=== PATIENT | male | born 1960 | race Caucasian/White ===

== ENCOUNTER → 2019-11-06 15:19 | Outpatient (CLI) | payer OTHER, SELFPAY ==
[2019-11-06 16:26] LABS: Add Manual Diff / Slide Review NO; Basophils Absolute Auto 0 /uL (0-100); Basophils Percent Auto 0.4 % (0-2); Eosinophils Absolute Auto 0 /uL (0-450); Eosinophils Percent Auto 0.6 % (2-4); Hematocrit 31.2 % (41-53); Hemoglobin 10.5 g/dL (13.5-17.5); Lymphocytes Absolute Auto 1000 /uL (1100-4500); Lymphocytes Percent Auto 19.8 % (25-40); Mean Corpuscular HGB Conc 33.6 % (30-36); Mean Corpuscular Hemoglobin 28.1 PG (26-34); Mean Corpuscular Volume 83.7 fL (80-100); Monocytes Absolute Auto 400 /uL (0-900); Monocytes Percent Auto 8.1 % (3-14); Neutrophils Absolute Auto 3700 /uL (1500-7000); Neutrophils Percent Auto 71.1 % (50-75); Platelet Count 229 X10^3/uL (150-400); Red Blood Cell Count 3.73 X10^6/uL (4.5-5.9); Red Cell Distribution Width 15.5 % (11.6-14.8); White Blood Cell Count 5.1 X10^3/uL (4.5-11.0)
[2019-11-06 16:45] LABS: Alanine Aminotransferase 22 IU/L (<50); Albumin 3.7 g/dL (3.5-5.0); Albumin Globulin Ratio 1.2 (1.0-2.8); Alkaline Phosphatase 62 U/L (38-126); Aspartate Aminotransferase 22 IU/L (17-59); BUN Creatinine Ratio 9.4 (6-22); Bilirubin Total 0.3 mg/dL (0.2-1.3); Blood Urea Nitrogen 14 mg/dL (9-20); Calcium 8.4 mg/dL (8.4-10.2); Carbon Dioxide 23 mmol/L (22-32); Chloride 106 mmol/L (98-107); Estimated Glomerular Filt Rate 48.4 mL/min (>60); Glucose 219 mg/dL (70-100); HEMOLYSIS < 15 (0-50); Potassium 4.6 mmol/L (3.4-5.1); Sodium 136 mmol/L (137-145); Total Protein 6.7 g/dL (6.3-8.2)
== END ==
PROVIDERS: PCP Internal Medicine; Referring Provider Orthopaedic Surgery; Visit Provider Orthopaedic Surgery
DX: Z01.818 Encounter for other preprocedural examination (principal); Z01.812 Encounter for preprocedural laboratory examination
CPT/HCPCS: 36415; 80053; 85025; 93005

== ENCOUNTER → 2019-11-24 14:43 | Outpatient (CLI) | payer OTHER, SELFPAY ==
[2019-11-25 09:45] LABS: COVID19 Sendout Not Detected (Not Detect)
== END ==
PROVIDERS: PCP Internal Medicine; Visit Provider Student in an Organized Health Care Education/Training Program
DX: Z01.812 Encounter for preprocedural laboratory examination (principal)
CPT/HCPCS: 87635

== ENCOUNTER 2019-11-27 06:41 | Day surgery (SDC) | payer OTHER, SELFPAY ==
[2019-10-09 10:09] VITALS: BMI 38.9
[2019-11-27 07:18] VITALS: BP 145/81; PULSE 80; RESP 16; TEMP 36.6; O2SAT 97; BMI 36.1
--- NOTE | 2019-11-27 07:42 | PM.PREOP ---
Pre-operative Note COVID-19 COVID-19 status: Negative Result date/Date tested (Pos, Neg/Pending): 11/25/19 Interval Note History & Physical reviewed/Exam performed by Physician: Yes Changes to H&P: No
--- NOTE | 2019-11-27 07:46 | PM.HP.1 ---
History of Present Illness History of Present Illness Date Patient Seen: 11/27/19 Time Patient Seen: 07:46 Chief complaint: [id number] RIGHT CUBITAL TUNNEL RELEASE Narrative: 59-year-old gentleman with numbness to the 4th and 5th fingers of his right hand. Patient History Medical History Afib (Acute) Anemia (Acute) Betancourt's esophagus (Acute) CKD (chronic kidney disease), stage IV (Acute) CVA (cerebral vascular accident) (Acute 01/27/16) Degeneration macular (Acute) Diabetes mellitus, type II (Acute) Edema (Acute) GERD (gastroesophageal reflux disease) (Acute) HLD (hyperlipidemia) (Acute) HTN (hypertension) (Acute) Hx of calcium pyrophosphate deposition disease (CPPD) (Acute) Numbness and tingling in right hand (Acute) JANESSA on CPAP (Acute) TIA (transient ischemic attack) (Acute) Surgical History History of esophagogastroduodenoscopy (EGD) (Acute 2015) S/P epidural steroid injection (Acute) Family & Social History Social History: household members spouse Prior Living Arrangements Apartment/Condo Tobacco & Substance use: Smoking Status Former smoker alcohol intake former Substance Use Type does not use Meds Home Medications and Allergies Home Medications Medication Instructions Recorded Confirmed Type Eliquis 5 mg PO BID 10/09/19 11/27/19 History febuxostat 40 mg PO DAILY 10/09/19 11/27/19 History ferrous sulfate 325 mg PO BID 10/09/19 11/27/19 History insulin degludec [Tresiba 13 unit SUBCUT BID 10/09/19 11/27/19 History FlexTouch U-100] insulin lispro [Humalog KwikPen 8 - 10 unit SUBCUT TID 10/09/19 11/27/19 History Insulin] liraglutide [Victoza 2-Lambert] 1.2 mg SUBCUT DAILY 10/09/19 11/27/19 History rosuvastatin [Crestor] 20 mg PO QPM 10/09/19 11/27/19 History anakinra [Kineret] 100 mg SUBCUT DAILY 11/27/19 11/27/19 History Allergies Allergy/AdvReac Type Severity Reaction Status Date / Time No Known Drug Allergies Allergy Verified 11/27/19 07:16 Review of Systems Review of Systems ROS: Yes All systems reviewed with the patient and are negative except as otherwise documented Exam Vital Signs (past 8 hours): - 11/27/19 07:18 Temperature 98 F Pulse Rate 80 Respiratory Rate 16 Blood Pressure 145/81 H Pulse Oximetry 97 Oxygen Delivery Method Room Air Narrative Exam Narrative: Patient has full range of motion of his wrist finger and elbow. No sign of any thenar atrophy or intrinsic wasting. Patient has decreased sensation in the ulnar nerve distribution. Some weakness in intrinsic muscle testing. No sign of any clawing. No sign of any decreased sensation in the median nerve distribution. Assessment & Plan Assessment & Plan narrative: Patient had an EMG study positive for signs of cubital tunnel. Due to these findings we recommended surgical treatment. All the patient's questions and concerns are answered to his full satisfaction. COVID-19 COVID-19 status: Negative Time Spent With Patient Time with patient: less than 15 minutes
[2019-11-27] MEDS: LACTATED RINGERS 1,000 ML 42 ML IV (07:50)
[2019-11-27] MEDS: CEFAZOLIN 2 GM/100 ML FROZ.PIGGY IV (08:00)
--- NOTE | 2019-11-27 08:22 | SUR.OPER ---
Supine on padded OR bed, head on pillow, operative arm on hand table at <90 degrees, nonoperative arm secured on padded arm board at <90 degrees abduction, legs uncrossed, safety belt at thigh, tape over blanket over lower legs.
[2019-11-27] MEDS: BUPIVACAINE 0.25% W/ EPI 30 ML VIAL INJ (08:28)
[2019-11-27 08:43] VITALS: BP 154/84; PULSE 87; RESP 16; TEMP 36.1; O2SAT 96
[2019-11-27 08:45] VITALS: BP 148/81; PULSE 89; RESP 16; O2SAT 95
--- NOTE | 2019-11-27 08:46 | PM.OP.1 ---
Operative Date/Time/Diagnoses Date of procedure: 11/27/19 Time of procedure: 08:00 Pre-op diagnosis: Right cubital tunnel Post-op diagnosis: same Procedure & Clinicians Procedure: Right cubital tunnel release Same procedure as scheduled: Yes Indications: Compression of the ulnar nerve at the cubital tunnel Surgeon: Ankit Kate Short Filler Bunch Machine Operator: Claudia Anderson Anesthesia Type: Peripheral nerve block Operative Notes Findings: Compression of the ulnar nerve at the cubital tunnel Closure Type: primary Specimen(s): none sent Estimated Blood Loss (mL): 0 Blood products transfused: none Tourniquet time (min): 26 Procedure in detail: On date of service, the patient was met in the holding area. Patients operative site was signed and witnessed by the OR staff. The surgery was once again discussed with the patient, and any remaining questions they had were answered fully. Patient was taken back to the operating theater and placed on the operating table in a supine position. Great care was taken to ensure that all bony prominences were carefully padded. A well-padded tourniquet was placed up along the upper extremity. A timeout was performed to verify patient's name, procedure, and operative site. The arm was then prepped and draped in the normal sterile fashion. We then turned our attention to the cubital tunnel. Ten blade was used to make an incision centered over the cubital tunnel. Ten blade was used incise through skin and fascial tissue. Electrocautery was used to achieve hemostasis. Deep knife was used to proceed with sharp dissection. Next, Metzenbaum scissors were used to identify the nerve proximal to the cubital tunnel. This was then decompressed proximally. Next, the ulnar nerve was decompressed through the cubital tunnel by releasing the cubital tunnel. This decompression was continued distally providing a complete decompression of the nerve. Wound was irrigated and then closed in a layered fashion. The hand was then cleaned, dried, and dressed. Patient was taken to the PACU in stable condition. Complications: none Post-operative Condition: stable Disposition: PACU Plan for aftercare: Patient will follow our postoperative protocol for a cubital tunnel release.
[2019-11-27 08:50] VITALS: BP 144/84; PULSE 86; RESP 16; O2SAT 96
[2019-11-27 09:26] VITALS: BP 155/89; PULSE 83; RESP 12; TEMP 36.4; O2SAT 96
== END 2019-11-27 09:35 | disposition home or self-care (01) ==
PROVIDERS: PCP Internal Medicine; Referring Provider Orthopaedic Surgery; Visit Provider Orthopaedic Surgery
PROC: (CPT 64718; principal; 2019-11-27 07:45)
DX: G56.21 Lesion of ulnar nerve, right upper limb (principal); M62.541 Muscle wasting and atrophy, not elsewhere classified, right hand; I10 Essential (primary) hypertension; N18.3 Chronic kidney disease, stage 3 (moderate); G47.33 Obstructive sleep apnea (adult) (pediatric); E66.9 Obesity, unspecified; E11.9 Type 2 diabetes mellitus without complications; Z86.73 Personal history of transient ischemic attack (TIA), and cerebral infarction without residual deficits; Z68.38 Body mass index [BMI] 38.0-38.9, adult; Z79.4 Long term (current) use of insulin
CPT/HCPCS: 64718; 93005; J0690; J2250; J3010

== ENCOUNTER → 2020-02-13 09:00 | Outpatient (CLI) | payer OTHER, SELFPAY ==
[2020-02-13 09:41] LABS: Add Manual Diff / Slide Review NO; Basophils Absolute Auto 0 /uL (0-100); Basophils Percent Auto 0.8 % (0-2); Eosinophils Absolute Auto 100 /uL (0-450); Eosinophils Percent Auto 2.1 % (2-4); Hematocrit 34.3 % (41-53); Hemoglobin 11.6 g/dL (13.5-17.5); Lymphocytes Absolute Auto 1100 /uL (1100-4500); Lymphocytes Percent Auto 27.8 % (25-40); Mean Corpuscular HGB Conc 33.9 % (30-36); Mean Corpuscular Hemoglobin 28.7 PG (26-34); Mean Corpuscular Volume 84.6 fL (80-100); Monocytes Absolute Auto 500 /uL (0-900); Monocytes Percent Auto 12.1 % (3-14); Neutrophils Absolute Auto 2200 /uL (1500-7000); Neutrophils Percent Auto 57.2 % (50-75); Platelet Count 217 X10^3/uL (150-400); Red Blood Cell Count 4.05 X10^6/uL (4.5-5.9); Red Cell Distribution Width 13.8 % (11.6-14.8); White Blood Cell Count 3.9 X10^3/uL (4.5-11.0)
[2020-02-13 10:27] LABS: BUN Creatinine Ratio 11.8 (6-22); Blood Urea Nitrogen 20 mg/dL (9-20); Calcium 8.6 mg/dL (8.4-10.2); Carbon Dioxide 26 mmol/L (22-32); Chloride 105 mmol/L (98-107); Cholesterol 143 mg/dL (140-199); Estimated Glomerular Filt Rate 41.7 mL/min (>60); Glucose 173 mg/dL (70-100); HDL Cholesterol 37 mg/dL (40-60); HEMOLYSIS < 15 (0-50); LDL Cholesterol Calculated 75 mg/dL (<100); Magnesium 1.8 mg/dL (1.6-2.3); Potassium 4.1 mmol/L (3.4-5.1); Sodium 138 mmol/L (137-145); Triglycerides 157 mg/dL (35-150)
[2020-02-13 10:33] LABS: Thyroid Stimulating Hormone 2.43 uIU/mL (0.47-4.68)
== END ==
PROVIDERS: PCP Internal Medicine; Referring Provider Nurse Practitioner; Visit Provider Nurse Practitioner
DX: I48.0 Paroxysmal atrial fibrillation (principal); I10 Essential (primary) hypertension; E11.8 Type 2 diabetes mellitus with unspecified complications; E78.5 Hyperlipidemia, unspecified
CPT/HCPCS: 36415; 80048; 80061; 83735; 84443; 85025

== ENCOUNTER → 2020-04-23 14:26 | Outpatient (ROUT) | payer OTHER, SELFPAY ==
[2020-04-23 14:51] LABS: BUN Creatinine Ratio 12.5 (6-22); Blood Urea Nitrogen 24 mg/dL (9-20); Carbon Dioxide 27 mmol/L (22-32); Chloride 107 mmol/L (98-107); Glucose 187 mg/dL (70-100); HEMOLYSIS < 15 (0-50); Potassium 4.5 mmol/L (3.4-5.1); Sodium 139 mmol/L (137-145)
== END ==
PROVIDERS: PCP Internal Medicine; Visit Provider Internal Medicine
DX: E11.21 Type 2 diabetes mellitus with diabetic nephropathy (principal)
CPT/HCPCS: 80048

== ENCOUNTER → 2020-06-24 14:41 | Outpatient (ROUT) | payer OTHER, SELFPAY ==
[2020-06-24 15:02] LABS: Add Manual Diff / Slide Review NO; Basophils Absolute Auto 0 /uL (0-100); Basophils Percent Auto 0.8 % (0-2); Eosinophils Absolute Auto 100 /uL (0-450); Eosinophils Percent Auto 2.8 % (2-4); Hematocrit 32.5 % (41-53); Lymphocytes Absolute Auto 1500 /uL (1100-4500); Lymphocytes Percent Auto 32.4 % (25-40); Mean Corpuscular HGB Conc 33.8 % (30-36); Monocytes Absolute Auto 500 /uL (0-900); Neutrophils Absolute Auto 2400 /uL (1500-7000); Platelet Count 181 X10^3/uL (150-400); Red Blood Cell Count 3.78 X10^6/uL (4.5-5.9); Red Cell Distribution Width 13.6 % (11.6-14.8); White Blood Cell Count 4.5 X10^3/uL (4.5-11.0)
== END ==
PROVIDERS: PCP Internal Medicine; Visit Provider Physician Assistant
DX: E11.21 Type 2 diabetes mellitus with diabetic nephropathy (principal)
CPT/HCPCS: 85025

== ENCOUNTER → 2023-09-06 15:08 | Outpatient (CLI) | payer MEDICARE, SELFPAY ==
--- NOTE | 2023-09-06 | DI.RAD.S_ITS ---
PROCEDURE: XR SHOULDER RT MIN 2V INDICATIONS: right shoulder pain TECHNIQUE: 3 views of the shoulder were acquired. COMPARISON: None. FINDINGS: Bones: No fractures or dislocations. No suspicious bony lesions. Visualized ribs appear intact. Glenohumeral and acromioclavicular joint space narrowing with associated osteophytosis. Soft tissues: No suspicious soft tissue calcifications. IMPRESSION: No acute bony abnormality. Moderate shoulder osteoarthritis. Dictated by: Ramon yBrd M.D. on 09/06/2023 at 16:11 Approved by: Ramon Byrd M.D. on 09/06/2023 at 16:12
== END ==
PROVIDERS: PCP Internal Medicine; Referring Provider Internal Medicine; Visit Provider Internal Medicine
DX: M25.511 Pain in right shoulder (principal); M19.011 Primary osteoarthritis, right shoulder
CPT/HCPCS: 73030